=== PATIENT | female | born 1945 | race Asian ===

== ENCOUNTER 2016-06-23 16:21 | Emergency (ER) | payer OTHER ==
[~2016-06-23] VITALS: Ht 157.5 cm; Wt 106.6 kg
[2016-06-23 18:35] LABS: PLATELET COUNT 310 K/uL (152-353)
[2016-06-23 18:45] LABS: POTASSIUM 3.7 mmol/L (3.6-5.2); SODIUM 139 mmol/L (136-145)
== END 2016-06-23 19:51 | disposition home or self-care (01) ==
LOC: ED 16:21
PROVIDERS: Specialist
DX: I20.8 Other forms of angina pectoris (principal); E66.8 Other obesity; I10 Essential (primary) hypertension; R00.1 Bradycardia, unspecified
CPT/HCPCS: 36415; 36600; 80053; 81000; 82550; 82553; 82805; 83735; 83880; 84100; 84484; 85027; 85379; 93005; 99283

== ENCOUNTER 2016-09-02 14:07 | Emergency (ER) | payer OTHER ==
[~2016-09-02] VITALS: Ht 157.5 cm; Wt 108.9 kg
[2016-09-02 16:30] LABS: PLATELET COUNT 318 K/uL (152-353)
[2016-09-02 16:41] LABS: POTASSIUM 3.9 mmol/L (3.6-5.2)
== END 2016-09-02 17:35 | disposition home or self-care (01) ==
LOC: ED 14:07
DX: B34.9 Viral infection, unspecified (principal); J40 Bronchitis, not specified as acute or chronic
CPT/HCPCS: 36415; 80053; 85027; 99283

== ENCOUNTER 2017-06-11 10:41 | Outpatient (CLI) | payer OTHER | END 2017-06-11 19:29 | disposition home or self-care (01) | LOC: MAMMO 10:41 | DX: Z12.31 Encounter for screening mammogram for malignant neoplasm of breast (principal) ==

== ENCOUNTER 2017-06-16 17:47 | Emergency (ER) | payer OTHER ==
[~2017-06-16] VITALS: Ht 160 cm; Wt 108.9 kg
[2017-06-16 18:03] VITALS: TEMP 101.9
[2017-06-16 18:55] LABS: PLATELET COUNT 336 K/uL (152-353)
[2017-06-16 19:52] VITALS: BP 178/82
== END 2017-06-16 19:52 | disposition home or self-care (01) ==
LOC: ED 17:47
DX: J06.9 Acute upper respiratory infection, unspecified (principal)
CPT/HCPCS: 85027; 87081; 87804; 87880; 96374; 99284

== ENCOUNTER 2017-06-21 19:43 | Observation (INO) | payer OTHER ==
[~2017-06-21] VITALS: Ht 160 cm; Wt 110.4 kg
[2017-06-21 22:35] LABS: POTASSIUM 3.4 mmol/L (3.6-5.2)
[2017-06-21 22:37] LABS: PLATELET COUNT 288 K/uL (152-353)
[2017-06-21 23:18] VITALS: BP 151/78; TEMP 97.5; Ht 160 cm; Wt 110.4 kg
[2017-06-22] VITALS: BP 151/78; TEMP 97.5
[2017-06-22 04:00] VITALS: BP 123/55; TEMP 97.8
[2017-06-22 08:00] VITALS: BP 117/56; TEMP 98.5
[2017-06-22 11:53] VITALS: BP 111/53; TEMP 98.2
[2017-06-22 16:00] VITALS: BP 134/75; TEMP 98.2
[2017-06-22 16:45] LABS: PLATELET COUNT 262 K/uL (152-353)
[2017-06-22 17:03] LABS: POTASSIUM 3.4 mmol/L (3.6-5.2)
[2017-06-22 20:00] VITALS: BP 155/69; TEMP 98.3
[2017-06-23] VITALS: BP 153/77; TEMP 98.8
[2017-06-23 04:00] VITALS: BP 153/63; TEMP 97.8
[2017-06-23 06:28] LABS: PLATELET COUNT 269 K/uL (152-353)
[2017-06-23 06:41] LABS: POTASSIUM 3.2 mmol/L (3.6-5.2)
[2017-06-23 08:00] VITALS: BP 156/72; TEMP 97.5
[2017-06-23 12:00] VITALS: BP 156/72; TEMP 97.5
== END 2017-06-23 13:35 | disposition home or self-care (01) ==
LOC: MED/SURG 19:43
PROVIDERS: ADMIT Family Medicine
DX: E86.0 Dehydration (principal); J09.X2 Influenza due to identified novel influenza A virus with other respiratory manifestations; R06.2 Wheezing
CPT/HCPCS: 36415; 80053; 83880; 85027; 87040; 87077; 87185; 87186; 87205; 94640; 94664; 94668; 94760; 96360; 96361; 96367; 96374; 96375; 99220; G0378; G0379; J1885

== ENCOUNTER 2017-07-26 18:22 | Outpatient (CLI) | payer OTHER | END 2017-07-26 19:25 | disposition home or self-care (01) | LOC: LAB 18:22 | DX: R06.02 Shortness of breath (principal) | CPT/HCPCS: 83880 ==

== ENCOUNTER 2017-12-29 13:58 | Emergency (ER) | payer OTHER ==
[~2017-12-29] VITALS: Ht 160 cm; Wt 108.9 kg
[2017-12-29 14:35] LABS: PLATELET COUNT 373 K/uL (152-353)
[2017-12-29 14:42] LABS: POTASSIUM 3.8 mmol/L (3.6-5.2); SODIUM 138 mmol/L (136-145)
[2017-12-29 15:50] VITALS: BP 155/74; TEMP 97.9
== END 2017-12-29 15:50 | disposition home or self-care (01) ==
LOC: ED 13:58
PROVIDERS: Emergency Medicine
DX: M54.12 Radiculopathy, cervical region (principal); M25.512 Pain in left shoulder; R20.0 Anesthesia of skin
CPT/HCPCS: 36415; 80053; 82550; 84484; 85027; 93005; 99283

== ENCOUNTER 2018-02-16 16:22 | Outpatient (CLI) | payer OTHER | END 2018-02-16 21:07 | disposition home or self-care (01) | LOC: RAD 16:22 | DX: M54.12 Radiculopathy, cervical region (principal) ==

== ENCOUNTER 2018-04-23 15:44 | Emergency (ER) | payer OTHER ==
[~2018-04-23] VITALS: Ht 160 cm; Wt 108.9 kg
[2018-04-23 16:10] VITALS: BP 193/94; TEMP 97.9
[2018-04-23 16:42] LABS: PLATELET COUNT 346 K/uL (152-353)
[2018-04-23 16:51] LABS: POTASSIUM 3.7 mmol/L (3.6-5.2)
== END 2018-04-23 18:50 | disposition home or self-care (01) ==
LOC: ED 15:44
PROVIDERS: Allergy & Immunology
DX: N39.0 Urinary tract infection, site not specified (principal)
CPT/HCPCS: 36415; 80053; 81000; 85027; 87502; 96372; 99283; J1885

== ENCOUNTER 2019-05-23 10:42 | Outpatient (CLI) | payer OTHER | END 2019-05-23 20:10 | disposition home or self-care (01) | LOC: MAMMO 10:42 | DX: Z12.31 Encounter for screening mammogram for malignant neoplasm of breast (principal) ==

== ENCOUNTER 2019-05-31 11:02 | Outpatient (CLI) | payer OTHER | END 2019-05-31 19:27 | disposition home or self-care (01) | LOC: RESP 11:02 | DX: R06.09 Other forms of dyspnea (principal) | CPT/HCPCS: 93306 ==

== ENCOUNTER 2020-01-06 10:28 | Outpatient (CLI) | payer OTHER | END 2020-01-06 18:50 | disposition home or self-care (01) | LOC: RAD 10:28 | DX: R05 Cough (principal) ==

== ENCOUNTER 2020-01-12 13:19 | Inpatient (IN) | payer OTHER ==
[~2020-01-12] VITALS: Ht 160 cm; Wt 106.3 kg
[2020-01-12 13:30] VITALS: BP 151/70; TEMP 98.7
[2020-01-12 15:00] VITALS: BP 153/76
[2020-01-12 17:45] VITALS: BP 164/94; TEMP 98.5
[2020-01-12 18:33] LABS: PLATELET COUNT 467 K/uL (152-353)
[2020-01-12 18:38] LABS: POTASSIUM 3.8 mmol/L (3.6-5.2); SODIUM 138 mmol/L (136-145)
[2020-01-12 19:00] VITALS: BP 125/82
[2020-01-12 20:00] VITALS: BP 151/78; TEMP 98.2
[2020-01-12 21:00] VITALS: BP 119/81
[2020-01-13] VITALS (7 sets, daily range): BP systolic 107–174; BP diastolic 55–97; TEMP 98.1–99.4; Ht 160 cm; Wt 106.3 kg
[2020-01-13 07:04] LABS: PLATELET COUNT 417 K/uL (152-353)
[2020-01-13 07:47] LABS: POTASSIUM 3.8 mmol/L (3.6-5.2)
[2020-01-14 00:14] VITALS: BP 134/71; TEMP 98.2
[2020-01-14 04:00] VITALS: BP 130/66; TEMP 98.8
[2020-01-14 05:09] LABS: PLATELET COUNT 431 K/uL (152-353)
[2020-01-14 05:24] LABS: POTASSIUM 3.8 mmol/L (3.6-5.2)
[2020-01-14 08:00] VITALS: BP 154/89; TEMP 97.8
[2020-01-14 12:00] VITALS: BP 138/74; TEMP 98.2
[2020-01-14 16:00] VITALS: BP 156/78; TEMP 98.7
[2020-01-14] MEDS ORDERED: COZAAR100 MG PO (17:02)
[2020-01-14] MEDS ORDERED: PANTOPRAZOLE 40MG TA PO (17:02)
[2020-01-14] MEDS ORDERED: LIPITOR10 MG PO (17:03)
[2020-01-14] MEDS ORDERED: CELEBREX200 MG PO (17:03)
[2020-01-14] MEDS ORDERED: HYDR25TA60 PO (17:03)
[2020-01-14] MEDS ORDERED: CYCL10TA35 PO (17:04)
[2020-01-14] MEDS ORDERED: TRAMADOL HYDROC50 MG PO (17:04)
[2020-01-14] MEDS ORDERED: ZITHROMAX500 MG PO (17:05)
[2020-01-14] MEDS ORDERED: ASPI325T40 PO (17:06)
[2020-01-14 20:00] VITALS: BP 159/79; TEMP 98.1
[2020-01-15] VITALS: BP 150/75; TEMP 98.4
[2020-01-15 04:00] VITALS: BP 142/70; TEMP 98.6
[2020-01-15 05:46] LABS: PLATELET COUNT 487 K/uL (152-353)
[2020-01-15 06:30] LABS: POTASSIUM 4.3 mmol/L (3.6-5.2)
[2020-01-15 08:00] VITALS: BP 150/69; TEMP 98.7
[2020-01-15 12:00] VITALS: BP 162/93; TEMP 98.6
[2020-01-15 16:00] VITALS: BP 140/71; TEMP 98.7
[2020-01-15 20:00] VITALS: BP 146/81; TEMP 98.1
== END 2020-01-15 20:38 | disposition home or self-care (01) | DRG 177 ==
LOC: ED 13:19 → MED/SURG 20:55
PROVIDERS: Family Medicine; ADMIT Family Medicine
DX: U07.1 COVID-19 (principal); J18.8 Other pneumonia, unspecified organism; N39.0 Urinary tract infection, site not specified; I10 Essential (primary) hypertension; E66.01 Morbid (severe) obesity due to excess calories; G47.39 Other sleep apnea; R53.1 Weakness; D64.89 Other specified anemias
CPT/HCPCS: 36415; 36600; 80053; 81000; 82728; 82805; 83605; 83735; 84100; 84484; 85027; 86140; 87040; 87077; 87086; 87088; 87186; 93005; 94760; 99283; J0456; J0696; J1650; J1885; J2001

== ENCOUNTER 2020-08-17 14:05 | Outpatient (CLI) | payer OTHER ==
[~2020-08-17 14:05] MED LIST: ASPI325T40 PO; CELEBREX200 MG PO; COZAAR100 MG PO; CYCL10TA35 PO; HYDR25TA60 PO; LIPITOR10 MG PO; PANTOPRAZOLE 40MG TA PO; TRAMADOL HYDROC50 MG PO; ZITHROMAX500 MG PO
== END 2020-08-17 20:16 | disposition home or self-care (01) ==
LOC: RAD 14:05
PROVIDERS: ATTEND Nurse Practitioner Family
DX: M79.672 Pain in left foot (principal)

== ENCOUNTER 2020-10-31 19:02 | Emergency (ER) | payer OTHER ==
[~2020-10-31] VITALS: Ht 160 cm; Wt 106.1 kg
[2020-10-31 19:29] VITALS: BP 148/73; TEMP 98.2
[2020-10-31 20:37] LABS: PLATELET COUNT 314 K/uL (152-353)
[2020-10-31 20:46] LABS: POTASSIUM 4.1 mmol/L (3.6-5.2); SODIUM 144 mmol/L (136-145)
[2020-10-31 20:59] LABS: PARTIAL THROMBOPLASTIN TIME 23.6 SECONDS (24.5-33.6)
== END 2020-10-31 20:12 | disposition home or self-care (01) ==
LOC: ED 19:02
PROVIDERS: Hospitalist
DX: J02.9 Acute pharyngitis, unspecified (principal); I50.9 Heart failure, unspecified; Z20.822 Contact with and (suspected) exposure to COVID-19
CPT/HCPCS: 36415; 80053; 82550; 83880; 84484; 85027; 85610; 85730; 87635; 87651; 93005; 96365; 96375; 99284; J0696; J1940; U0003

== ENCOUNTER 2020-11-08 09:22 | Outpatient (CLI) | payer OTHER | END 2020-11-08 23:59 | disposition home or self-care (01) | LOC: US 09:22 | PROVIDERS: ATTEND Nurse Practitioner Family | DX: I73.9 Peripheral vascular disease, unspecified (principal) ==

== ENCOUNTER 2020-12-12 07:50 | Outpatient (CLI) | payer OTHER | END 2020-12-12 20:59 | disposition home or self-care (01) | LOC: RESP 07:50 | PROVIDERS: ATTEND Nurse Practitioner Family | DX: I50.9 Heart failure, unspecified (principal) ==

== ENCOUNTER 2020-12-13 11:40 | Emergency (ER) | payer OTHER ==
[~2020-12-13] VITALS: Ht 160 cm; Wt 106.1 kg
[2020-12-13 12:32] LABS: PLATELET COUNT 376 K/uL (152-353)
[2020-12-13 12:43] LABS: POTASSIUM 4.1 mmol/L (3.6-5.2)
[2020-12-13 13:11] VITALS: BP 162/92; TEMP 96.9
== END 2020-12-13 13:11 | disposition home or self-care (01) ==
LOC: ED 11:40
PROVIDERS: Family Medicine
DX: S00.03XA Contusion of scalp, initial encounter (principal); J32.8 Other chronic sinusitis; Z79.2 Long term (current) use of antibiotics; W01.190A Fall on same level from slipping, tripping and stumbling with subsequent striking against furniture, initial encounter; Y92.89 Other specified places as the place of occurrence of the external cause
CPT/HCPCS: 80053; 85027; 99283

== ENCOUNTER 2021-11-03 10:27 | Outpatient (CLI) | payer OTHER | END 2021-11-03 19:00 | disposition home or self-care (01) | LOC: US 10:27 | PROVIDERS: ATTEND Nurse Practitioner Primary Care | DX: R22.9 Localized swelling, mass and lump, unspecified (principal) ==

== ENCOUNTER 2021-12-17 13:30 | Outpatient (CLI) | payer OTHER | END 2021-12-17 19:23 | disposition home or self-care (01) | LOC: US 13:30 | PROVIDERS: ATTEND Nurse Practitioner Family | DX: G25.81 Restless legs syndrome (principal) ==

== ENCOUNTER 2022-03-02 12:08 | Outpatient (CLI) | payer OTHER | END 2022-03-02 19:05 | disposition home or self-care (01) | LOC: RAD 12:08 | PROVIDERS: ATTEND Nurse Practitioner Family | DX: M25.511 Pain in right shoulder (principal) ==

== ENCOUNTER 2022-08-15 19:20 | Emergency (ER) | payer OTHER ==
[~2022-08-15] VITALS: Ht 160 cm; Wt 99.8 kg
[2022-08-15 19:30] VITALS: TEMP 98.8
[2022-08-15 21:00] VITALS: BP 137/76
== END 2022-08-15 21:00 | disposition home or self-care (01) ==
LOC: ED 19:20
DX: M54.59 Other low back pain (principal); M47.816 Spondylosis without myelopathy or radiculopathy, lumbar region; M19.09 Primary osteoarthritis, other specified site; R60.0 Localized edema
CPT/HCPCS: 80307; 81002; 96372; 99283; J1885; J1940

== ENCOUNTER 2022-12-21 12:03 | Outpatient (CLI) | payer OTHER | END 2022-12-21 21:56 | disposition home or self-care (01) | LOC: RAD 12:03 | PROVIDERS: ATTEND Family Medicine | DX: R05.9 Cough, unspecified (principal) ==

== ENCOUNTER 2022-12-30 11:18 | Outpatient (CLI) | payer OTHER | END 2022-12-30 19:08 | disposition home or self-care (01) | LOC: US 11:18 → RAD 11:18 → US 19:08 | PROVIDERS: ATTEND Family Medicine | DX: M79.604 Pain in right leg (principal); R60.0 Localized edema ==

== ENCOUNTER 2023-01-18 10:13 | Outpatient (CLI) | payer OTHER | END 2023-01-18 23:02 | disposition home or self-care (01) | LOC: LABW 10:13 | PROVIDERS: ATTEND Family Medicine | DX: I12.9 Hypertensive chronic kidney disease with stage 1 through stage 4 chronic kidney disease, or unspecified chronic kidney disease (principal); N18.30 Chronic kidney disease, stage 3 unspecified; R42 Dizziness and giddiness; E78.49 Other hyperlipidemia; M10.9 Gout, unspecified; M19.90 Unspecified osteoarthritis, unspecified site; K21.9 Gastro-esophageal reflux disease without esophagitis; E55.9 Vitamin D deficiency, unspecified; D64.89 Other specified anemias; Z79.899 Other long term (current) drug therapy | CPT/HCPCS: 36415; 80053; 80061; 82306; 82728; 83540; 83550; 83735; 84439; 84443; 84550 ==

== ENCOUNTER 2023-06-22 15:52 | Outpatient (CLI) | payer OTHER | END 2023-06-22 19:32 | disposition home or self-care (01) | LOC: RAD 15:52 | PROVIDERS: ATTEND Family Medicine | DX: M25.561 Pain in right knee (principal); R05.9 Cough, unspecified ==